=== PATIENT | male | born 1965 | race Caucasian/White ===

== ENCOUNTER 2022-10-04 11:27 | Outpatient (CLI) | payer MEDICAID, SELFPAY ==
--- NOTE | 2022-10-04 11:37 | MR_ITS ---
WS: [id number] MRI LEFT KNEE NONCONTRAST TECHNIQUE: Axial PD, coronal PD fat sat, coronal PD, sagittal PD, and sagittal PD fat-sat images obta ined. CLINICAL INFORMATION: PAIN IN LEFT KNEE COMPARISON: None. FINDINGS: Distal quadriceps and patella tendons are intact. Prepatellar and infrapatellar soft tissue edema. Sm all suprapatellar effusion. Chronic appearing thinning of the ACL which appears intact with mucoid de generation. Normal PCL. Advanced tricompartmental arthritis. Hypertrophic changes along the joint edith e. Chronic thinning of the lateral meniscus. Complex tear posterior horn medial meniscus with blunting. Peripheral extrusion of the medial meniscu s. Grade IV chondromalacia medial joint compartment. Small amount of edema in the medial tibial plateau. Normal medial and lateral collateral ligaments. Normal popliteus. Moderate chondromalacia patella. Hypertrophic patella. Lobulated fluid collection along the medial joint line extending distally along the tibia compatible with parameniscal cyst. Some of this may represent pes anserine bursitis although located deep to the MCL. Associated soft tissue edema. Normal popliteal fossa. MR/MR knee LT con* [id number] IMPRESSION: 1. Chronic thinning of the ACL which appears intact. Normal PCL. 2. Small joint effusion with soft tissue edema along the joint line. Prepatell ar and infrapatellar soft tissue edema. 3. Advanced chondromalacia medial joint compartment with peripheral extrusion of the medial meniscus. Tear of the posterior horn medial meniscus with bluntin g. 4. Lobulated parameniscal cyst along the medial joint line and proximal tibia deep to the pes anserinus tendons and medial collateral ligament. Some of this may represent bursitis. 5. Moderate chondromalacia patella. 6. Medial and lateral collateral ligaments appear intact. Outbridge grading: grade IV: full-thickness cartilage loss with underlying bone reactive changes
--- NOTE | 2022-10-04 11:37 | US_ITS ---
WS: [id number] Complete ABDOMINAL ULTRASOUND HISTORY: NAUSEA with vomiting. COMPARISON: None available. Liver: 20.5 cm in length. Liver is moderately enlarged. Mild coarsened echotexture. Cyst in superior liver, probably the LEFT lobe, measures 1.8 x 1.4 x 2.0 cm. No solid mass or bile duct dilatation. Portal Vein: Normal hepatopetal flow with monophasic waveform. Gallbladder: Normally distended with no gallstones, wall thickening or pericholecystic fluid. Pancreas: Obscured by bowel gas and body habitus. CBD: 0.3 cm. Right kidney: 12.9 cm x 5.4 cm x 5.1 cm. No mass, cortical thickening or hydronephrosis. Left kidney: 12.0 cm x 4.5 cm x 6.1 cm. No mass, cortical thickening or hydronephrosis. Spleen: Normal size and echogenicity. Abdominal aorta and IVC are within normal limits. No ascites. US/US abdomen complete* [id number] IMPRESSION: 1. Normal gallbladder. 2. Single hepatic cysts with moderate hepatomegaly and mild hepatic steatosis. 3. Poor visualization of the pancreas.
== END 2022-10-04 11:28 | disposition home or self-care (01) ==
LOC: RAD 11:27
PROVIDERS: PCP Nurse Practitioner; Visit Provider Nurse Practitioner
DX: M25.562 Pain in left knee (principal)
CPT/HCPCS: 73721; 76700

== ENCOUNTER → 2022-12-17 09:59 | Outpatient (BNVA) | payer OTHER, MEDICAID, SELFPAY | PROVIDERS: PCP Nurse Practitioner; Referring Provider Nurse Practitioner; Visit Provider Student in an Organized Health Care Education/Training Program | DX: M17.12 Unilateral primary osteoarthritis, left knee (principal); M94.262 Chondromalacia, left knee; S83.242A Other tear of medial meniscus, current injury, left knee, initial encounter; X58.XXXA Exposure to other specified factors, initial encounter | CPT/HCPCS: 73560; 73565 ==

== ENCOUNTER → 2024-10-06 15:07 | Outpatient (BNVA) | payer OTHER, MEDICAID, SELFPAY | PROVIDERS: PCP Nurse Practitioner; Visit Provider Student in an Organized Health Care Education/Training Program | DX: M25.561 Pain in right knee (principal); M17.0 Bilateral primary osteoarthritis of knee; R03.0 Elevated blood-pressure reading, without diagnosis of hypertension | CPT/HCPCS: 73560; 73565 ==

== ENCOUNTER 2025-08-11 14:39 | Oncology outpatient (recurring) (ONCR) | payer MEDICAID, SELFPAY ==
--- NOTE | 2025-08-11 15:52 | XRR_ITS ---
PROCEDURE INFORMATION: Exam: XR Chest Exam date and time: 08/11/2025 4:01 PM Age: 60 years old Clinical indication: Condition or disease; Other: Anemia; Prior surgery; Surgery date: 6+ months; Surgery type: Cervical fusion TECHNIQUE: Imaging protocol: Radiologic exam of the chest. Views: 2 views. COMPARISON: No relevant prior studies available. FINDINGS: Lungs: Faint densities over both lower lungs likely represent nipple shadows. No consolidation. Pleural spaces: Unremarkable. No pleural effusion. No pneumothorax. Heart/Mediastinum: 10 cm retrocardiac opacity which most likely represents hiatal hernia. Bones/joints: Cervical spine fixation plate is in place. Soft tissues: Unremarkable. XR/XR chest 2V* [id number] IMPRESSION: 1. 10 cm retrocardiac opacity which most likely represents hiatal hernia. To exclude other mediastinal mass, esophagogram or chest CT could be obtained. 2. No other acute disease in the chest.
[2025-08-11 16:32] LABS: Hematocrit 50.9 % (37-53); Hemoglobin 16.40 g/dL (11.27-16.99); Mean Corpuscular HGB Conc 32.2 g/dL (30-55); Mean Corpuscular Hemoglobin 26.1 pg (27-33); Mean Corpuscular Volume 81.1 fl (82-101); Nucleated Red Blood Cells % 0 %; Platelet Count 197 10^3/cmm (157-399); Red Blood Count 6.28 10^6/uL (3.85-5.65); White Blood Count 5.01 10^3/uL (3.29-11.43)
[2025-08-11 16:54] LABS: Alanine Aminotransferase 25 U/L (0-41); Albumin Level 3.9 g/dL (3.5-5.2); Alkaline Phosphatase 79 U/L (40-130); Blood Urea Nitrogen 21 mg/dL (8-23); Calcium 8.9 mg/dL (8.5-10.5); Carbon Dioxide 23 mmol/L (22-29); Chloride 104 mmol/L (98-107); Ferritin 26 ng/mL (30-400); Globulin 3.2 g/dL (1.3-4.6); Glucose 216 mg/dL (65-115); Iron 166 ug/dL (59-158); Osmolality Calculated 304 mOsm/kg (285-295); Sodium 142 mmol/L (136-145); Total Protein 7.1 g/dL (6.6-8.7)
[2025-08-11 17:18] LABS: Anion Gap 18.8 (5-19); Aspartate Amino Transferase 22 U/L (0-40); Potassium 3.8 mmol/L (3.5-5.1); Total Iron Binding Capacity 351 mcg/dl; Unsaturated Iron Binding 185 ug/dL (112-347)
[2025-08-11 17:38] LABS: Vitamin B12 > 2000 pg/mL (232-1245)
== END 2025-09-01 23:59 | disposition home or self-care (01) ==
PROVIDERS: PCP Nurse Practitioner; Visit Provider Internal Medicine
DX: Z53.9 Procedure and treatment not carried out, unspecified reason (principal); Z87.891 Personal history of nicotine dependence; Z79.899 Other long term (current) drug therapy; E11.9 Type 2 diabetes mellitus without complications; I10 Essential (primary) hypertension; E78.5 Hyperlipidemia, unspecified; K21.9 Gastro-esophageal reflux disease without esophagitis; E66.9 Obesity, unspecified; Z68.37 Body mass index [BMI] 37.0-37.9, adult; D50.9 Iron deficiency anemia, unspecified; K59.00 Constipation, unspecified; D64.9 Anemia, unspecified; R93.89 Abnormal findings on diagnostic imaging of other specified body structures
CPT/HCPCS: 36415; 71046; 80053; 82607; 82728; 82746; 83540; 83550; 83615; 85025; 85045; 86880; 99204

== ENCOUNTER 2025-08-20 08:57 | Outpatient (CLI) | payer MEDICAID, SELFPAY ==
--- NOTE | 2025-08-20 09:45 | US_ITS ---
WS: [id number] Abdomen ultrasound, 08/20/2025 Clinical Data: Iron deficiency Comparison: Abdomen ultrasound, 10/04/2022 Findings: The pancreas shows no cyst, pseudocyst or evidence of pancreatitis. The liver shows no cysts, masses or dilated intrahepatic ducts. The liver measures 19.8 cm. The liver has smooth echotexture. The main portal vein shows hepatopetal flow and measures 0.9 cm. The gallbladder has no stones or sludge. The wall measures 0.2 cm with no pericholecystic fluid. The common bile duct is 0.2 cm and no intraductal abnormalities are noted. The right kidney is 12.6 cm. No cysts, masses or hydronephrosis is seen. The left kidney is 12.0 cm. No cysts, masses or hydronephrosis is seen. The abdominal aorta is not dilated and the inferior vena cava has normal flow. No vascular abnormalities are seen. The spleen measures 10.5 cm and there are no intrasplenic masses or capsular abnormalities. US/US abdomen complete* [id number] Impression: Hepatomegaly.
== END 2025-08-20 08:58 | disposition home or self-care (01) ==
LOC: RAD 09:00
PROVIDERS: PCP Nurse Practitioner; Visit Provider Nurse Practitioner
DX: D50.9 Iron deficiency anemia, unspecified (principal); R16.0 Hepatomegaly, not elsewhere classified
CPT/HCPCS: 76700